=== PATIENT | male | born 1985 | race Hispanic/Latino ===

== ENCOUNTER 2016-11-07 19:23 | Emergency (ER) | payer OTHER ==
[~2016-11-07] VITALS: Ht 177.8 cm; Wt 127.0 kg
[2016-11-07 19:23] VITALS: BP 141/86
== END 2016-11-07 19:49 | disposition home or self-care (01) | DRG 951 ==
LOC: ED 19:23
DX: Z20.818 Contact with and (suspected) exposure to other bacterial communicable diseases (principal)

== ENCOUNTER 2017-04-24 04:11 | Emergency (ER) | payer OTHER ==
[~2017-04-24] VITALS: Ht 177.8 cm; Wt 114.0 kg
[2017-04-24 06:10] LABS: HEMATOCRIT 43.3 % (39.0-50.0); HEMOGLOBIN 15.3 g/dl (14.0-18.0); IMMATURE GRANULOCYTES 0.2 % (0.0-1.0); MEAN CORPUSCULAR HGB 32.1 pG CALC (26.0-32.0); MEAN CORPUSCULAR HGB CONC 35.3 g/L CALC (32.0-36.0); NEUT# 5.63 thou/uL (1.82-7.42); RED BLOOD COUNT 4.76 mill/uL (4.70-6.10); RED CELL DISTRI WIDTH 11.7 % (11.5-15.5)
[2017-04-24 06:23] LABS: ANION GAP 17 (6-22 (CALC)); BUN 18 mg/dL (9-20); BUN/CREATININE RATIO 14 (12-20 (CALC)); CARBON DIOXIDE 24 mmol/l (22-30); CHLORIDE 107 mmol/l (95-108); CREATININE 1.3 mg/dL (0.7-1.3); GFR > 60 ML/MIN (>=60 (CALC)); GFR FOR AFR.AMER. > 60 ML/MIN (>=60 (CALC)); GLUCOSE 94 mg/dL (75-110); POTASSIUM 4.2 mmol/l (3.5-5.1); SODIUM 144 mmol/l (137-146)
[2017-04-24] MEDS ORDERED: TORADOL PO (07:19)
[2017-04-24] MEDS ORDERED: PERCOCET 5/325M1 TAB PO (07:19)
[2017-04-24 07:28] VITALS: BP 133/85
== END 2017-04-24 07:37 | disposition home or self-care (01) | DRG 605 ==
LOC: ED 04:11
PROVIDERS: Family Medicine
DX: S20.212A Contusion of left front wall of thorax, initial encounter (principal); Y35.811A Legal intervention involving manhandling, law enforcement official injured, initial encounter; Y93.89 Activity, other specified; Y92.89 Other specified places as the place of occurrence of the external cause; Y99.0 Civilian activity done for income or pay
CPT/HCPCS: Q9967

== ENCOUNTER 2020-02-06 11:29 | Emergency (ER) | payer OTHER ==
[~2020-02-06] VITALS: Ht 177.8 cm; Wt 103.0 kg
[~2020-02-06 11:29] MED LIST: PERCOCET 5/325M1 TAB PO; TORADOL PO
[2020-02-06 12:44] VITALS: BP 130/81
== END 2020-02-06 12:44 | disposition home or self-care (01) | DRG 556 ==
LOC: ED 11:29
DX: M25.571 Pain in right ankle and joints of right foot (principal); S80.212A Abrasion, left knee, initial encounter; W13.3XXA Fall through floor, initial encounter; Y93.89 Activity, other specified; Y92.009 Unspecified place in unspecified non-institutional (private) residence as the place of occurrence of the external cause; Y99.0 Civilian activity done for income or pay

== ENCOUNTER 2020-10-04 22:12 | Emergency (ER) | payer BC ==
[~2020-10-04] VITALS: Ht 177.8 cm; Wt 107.0 kg
[2020-10-04 22:37] VITALS: BP 163/100
== END 2020-10-04 22:41 | disposition home or self-care (01) | DRG 179 ==
LOC: ED 22:12
DX: U07.1 COVID-19 (principal)

== ENCOUNTER 2024-02-17 01:53 | Emergency (ER) | payer BC ==
[~2024-02-17] VITALS: Ht 177.8 cm; Wt 117.9 kg
[2024-02-17] MEDS ORDERED: AMOX/K CLAV875 M1 PO (02:10)
[2024-02-17] MEDS ORDERED: NAPROXEN500 MG PO (02:10)
[2024-02-17] MEDS ORDERED: ACETAMINOPHEN 500 MG TAB PO ONE (02:15)
[2024-02-17] MEDS ORDERED: IBUPROFEN 800 MG/TAB PO ONE (02:15)
[2024-02-17] MEDS ORDERED: AMOXICILLIN & POT CLAVULANATE 875 MG/TAB PO ONE (02:15)
[2024-02-17 02:22] VITALS: BP 140/91
== END 2024-02-17 02:22 | disposition home or self-care (01) | DRG 153 ==
LOC: ED 01:53
DX: H66.92 Otitis media, unspecified, left ear (principal)